=== PATIENT | female | born 1980 | race Caucasian/White ===

== ENCOUNTER 2017-04-21 22:10 | Emergency (ER) | payer OTHER ==
[~2017-04-21] VITALS: Ht 172.7 cm; Wt 81.6 kg
--- NOTE | ~2017-04-21 | EKG ---
PATIENT: JOANNA BERNSTEIN UNIT #: [id number] Ventricular Rate: 114 BPM Atrial Rate: 114 BPM P-R Interval: 146 ms QRS Duration: 82 ms Q-T Interval: 334 ms QTC Calculation(Bezet): 460 ms P Decker: 57 degrees Calculated R Decker: 63 degrees Calculated T Decker: 59 degrees Diagnosis Line: Sinus tachycardia Diagnosis Line: Possible Left atrial enlargement Diagnosis Line: Borderline ECG Diagnosis Line: When compared with ECG of 25-JUL-2014 12:09, Diagnosis Line: Vent. rate has increased BY 50 BPM Diagnosis Line: Nonspecific T wave abnormality now evident in Diagnosis Line: Anterior leads Diagnosis Line: Confirmed by MARKIE LAU MD ([id number]) on Diagnosis Line: 04/22/2017 10:36:30 PM INTERPRETING MD: ORTEGA
--- NOTE | ~2017-04-21 | CT71 ---
[facility] A Service of [facility] RADIOLOGY TEXT RESULTS PATIENT: JOANNA BERNSTEIN LOCATION: [place] : 82 UNIT #: [id number] AGE: [address]: Narinder Bennett DO SEX: F ORDER DR: [id number] [facility] [address] [place], [place] [address] [id number] MR#: [id number] Acc #: [id number] NAME: JOANNA BERNSTEIN : 1980 SEX: F STUDY DATE/TIME: 04/21/2017 23:31 UNIT: [place] ROOM: STUDY DESCRIPTION: CT Head Wo Contrast Attending Physician: Narinder Bennett D.O. Ordering Physician: Narinder Bennett D.O. Primary Care Physician: Oniel Pandey M.D. MEDICAL IMAGING REPORT This report is preliminary unless electronic signature is present EXAM Head CT 04/21 23:31 INDICATION Possible seizure today. Headache. Patient does not remember. COMPARISON 05/02/2014. FINDINGS This CT examination was performed with one or more of the following radiation dose reduction techniques: automatic exposure control, adjustment of mA and/or kV according to patient size, and iterative reconstruction. Axial noncontrast images were obtained from the skull base to the vertex. Ventricular size and configuration are normal. There is no evidence of acute infarct or hemorrhage. There are no extra-axial fluid collections. No mass lesion or mass effect is seen. There are no skull fractures. IMPRESSION Normal noncontrast head CT. Dictated by... Davis Salter Jr., M.D. THIS IS AN ELECTRONICALLY VERIFIED REPORT Davis Salter Jr., M.D. at 04/23/2017 4:21 AM ROSALEE/chelsey TD: 04/22/2017 06:31 [facility] A Service of [facility] RADIOLOGY TEXT RESULTS PATIENT: JOANNA BERSNTEIN LOCATION: [place] : 82 UNIT #: [id number] AGE: [address]: Narinder Bennett DO SEX: F ORDER DR: JOB #: [id number] MEDICAL IMAGING REPORT Page 1 of 1 COPY
[~2017-04-21 22:10] MED LIST: ABILIFY PO; ABILIFY5 MG PO; ALBUTEROL17 GM INH; ANUSOL-HC SUPP25 M1 PR; CELEXA20 MG PO; CENTRUM PO; CIPRO PO; COLACE PO; DARVOCET-N 1001 TAB PO; DOXYCYCLINE PO; EFFEXOR PO; FLEXERIL PO; KEFLEX PO; KEFLEX500 M1 PO; KETOPROFEN PO; LEXAPRO PO; LEXAPRO20 MG DOB; LEXAPRO20 MG PO; LORTAB 5/500 TA1 TA2 PO; LORTAB 7.51 TAB PO; MEDROL PO; MENOPAUSE RELI1 EACH PO; MULTI VITAMIN1 EACH PO; NASONEX17 GM; NO MEDICATIONS; NORCO1 TAB 10/3 PO; ROBAXIN PO; SEROQUEL PO; SINGULAIR PO; SYMBICORT INH; TYLOX 5/500 CAP1 CAP PO; ULTRAM PO; VICODIN 5/500 T1 TAB PO; VIT E PO; ZYRTEC10 M2 PO
== END 2017-04-22 00:39 | disposition left against medical advice (07) ==
LOC: CED 22:10
DX: F11.10 Opioid abuse, uncomplicated (principal); F41.9 Anxiety disorder, unspecified; Z98.890 Other specified postprocedural states; Z88.2 Allergy status to sulfonamides; Z88.0 Allergy status to penicillin; Z88.1 Allergy status to other antibiotic agents; Z88.8 Allergy status to other drugs, medicaments and biological substances; Z79.899 Other long term (current) drug therapy
CPT/HCPCS: 70450; 93005; 99285